=== PATIENT | male | born 1970 | race American Indian/Alaskan Native ===

== ENCOUNTER 2019-07-16 18:45 | Emergency (ER) | payer SELFPAY ==
[2019-07-16 19:38] LABS: Basophils % (Auto) 0.5 % (0.0-1.8); Eosinophils % (Auto) 0.4 % (0.0-4.3); Hemoglobin 14.9 gm/dl (11.8-15.2); Lymphocytes # (Auto) 0.9 K/mm3 (1.2-5.4); Lymphocytes % (Auto) 10.8 % (13.4-35.0); Mean Corpuscular HGB Conc 33 % (32-34); Mean Corpuscular Volume 84 fl (84-94); Monocytes # (Auto) 0.4 K/mm3 (0.0-0.8); Monocytes % (Auto) 4.5 % (0.0-7.3); Platelet Count 189 K/mm3 (140-440); Red Blood Count 5.36 M/mm3 (3.65-5.03); Red Cell Distribution Width 14.1 % (13.2-15.2)
--- NOTE | 2019-07-16 20:09 | Emergency Department Report ---
HPI - General Chief Complaint: Syncope Time Seen by Provider: 07/16/19 19:07 - HPI HPI: 49-year-old female presents to the emergency department by EMS after he had [place]. The patient became very dizzy and had episode of vomiting and almost passed out. He says that he took a knee but did not lose consciousness. Currently the patient is feeling improved and has already gotten up and gone to the vending machines. He had a blood sugar of 95 with EMS. He thinks he was just dehydrated. He has a past medical history of hypertension and polycystic kidney disease. Does not have a primary care physician. He is a tobacco smoker but denies any illicit drug use or current alcohol use. ED Past Medical Hx - Past Medical History Previous Medical History?: Yes Hx Hypertension: Yes Hx Renal Disease: Yes (polycystic kidney disease) Additional medical history: HIGH CHOLESTEROL - Social History Smoking Status: Current Every Day Smoker Substance Use Type: Marijuana - Medications Home Medications: Home Medications Medication Instructions Recorded Confirmed Last Taken Type Lisinopril/Hydrochlorothiazide 1 tab PO QDAY #14 tablet 03/12/15 10/04/15 0 03/31/15 Rx [Zestoretic 10-12.5 mg] Simvastatin 10 mg PO QHS #14 tablet 03/12/15 10/04/15 03/31/15 Rx amLODIPine [Norvasc] 5 mg PO DAILY #90 tab 10/05/15 Unknown Rx ED Review of Systems ROS: Stated complaint: N/V/DIZZINESS Other details as noted in HPI Comment: All other systems reviewed and negative Constitutional: denies: chills, fever Eyes: denies: eye pain, vision change ENT: denies: ear pain, throat pain Respiratory: denies: cough, shortness of breath Cardiovascular: denies: chest pain, palpitations Gastrointestinal: nausea, vomiting Genitourinary: denies: dysuria, discharge Musculoskeletal: denies: back pain, arthralgia Skin: denies: rash, lesions Neurological: other (dizziness). denies: headache, weakness Physical Exam - Physical Exam Vital Signs: Vital Signs 07/16/19 07/16/19 07/16/19 18:56 18:59 19:37 Temperature 98.7 F Pulse Rate 87 84 Respiratory 16 18 16 Rate Blood Pressure 136/87 132/84 [Right] O2 Sat by Pulse 96 97 Oximetry Physical Exam: GENERAL: The patient is well-developed well-nourished. HENT: Normocephalic. Atraumatic. Patient has moist mucous membranes. EYES: Extraocular motions are intact. Pupils equal reactive to light bilaterally. NECK: Supple. Trachea is midline. CHEST/LUNGS: Clear to auscultation. There is no respiratory distress noted. HEART/CARDIOVASCULAR: Regular. There is no tachycardia. There is no murmur. ABDOMEN: Abdomen is soft, nontender. Patient has normal bowel sounds. There is no abdominal distention. SKIN: Skin is warm and dry. NEURO: The patient is awake, alert, and oriented. The patient is cooperative. The patient has no focal neurologic deficits. The patient has normal speech. Cranial nerves II through XII grossly intact. No pronator drift. No dysmetria. MUSCULOSKELETAL: There is no tenderness or deformity. There is no limitation range of motion. There is no evidence of acute injury. ED Course Vital Signs 07/16/19 07/16/19 07/16/19 18:56 18:59 19:37 Temperature 98.7 F Pulse Rate 87 84 Respiratory 16 18 16 Rate Blood Pressure 136/87 132/84 [Right] O2 Sat by Pulse 96 97 Oximetry ED Medical Decision Making - Lab Data Result diagrams: 07/16/19 19:28 07/16/19 19:28 - EKG Data -: EKG Interpreted by [facility] EKG shows normal: sinus rhythm, axis, intervals, QRS complexes (LVH), ST-T waves (early repolarization) Rate: normal - EKG Data When compared to previous EKG there are: no significant change Interpretation: unchanged when compared t (10/04/15) - Medical Decision Making This patient presents to the emergency department by EMS after having a near- syncopal episode. The patient just things he is dehydrated and was out in the sun too long. On examination he does not appear to have any focal, motor or sensory deficits and his cranial nerves are intact. EKG did not show any signs of ST elevation IN. Patient's labs were mostly unremarkable except for signs of acute renal failure. The last time the patient was here was over 4 years ago and he had normal creatinine and GFR at that time. Currently his creatinine is 2.3 and his GFR is 36. Patient does have some signs of hypertension and his EKG showed LVH so this may be a chronic issue for him. However he does not follow with any primary care physician. I recommended to the patient that we proceed with a urinalysis and a renal ultrasound and if this is truly showing signs of acute renal failure and acute kidney injury that he might require admission. However the patient refuses any further workup at this time. I explained to him that he may have acute renal failure and that worsening could lead to abdominal and back pain, uremia, dialysis dependence, volume overload or CHF, significant electrolyte abnormalities. The patient is awake, alert, oriented and appears to have a normal decision making capacity at this time. Despite understanding the risks of leaving, the patient has decided to sign out AMA. He was still given a referral for nephrology and was instructed to return if he changes his mind about further evaluation, or if he has any acute distress. - Differential Diagnosis orthostatic hypotension, dysrhythmia, TIA, hypoglycemia, dehydration Critical Care Time: No Critical care attestation.: If time is entered above; I have spent that time in minutes in the direct care of this critically ill patient, excluding procedure time. ED Disposition Clinical Impression: Near syncope, Acute renal failure Disposition: DC-07 LEFT AGAINST MED ADVICE Is pt being admited?: No Condition: Fair Additional Instructions: You were found today to have some acute kidney failure. Return to the emergency department immediately if you change your mind about further evaluation of your kidney failure, or with any acute distress. I will still give you a referral for a local rn plastic surgery, kidney doctor, Dr. Yanez. Referrals: ZENY YANEZ MD [Staff Physician] - [place] Forms: AMA Form Time of Disposition: 18:30
[2019-07-16 20:41] LABS: Alanine Aminotransferase 10 units/L (7-56); Albumin 3.5 g/dL (3.9-5); BUN/Creatinine Ratio 9; Blood Urea Nitrogen 20 mg/dL (9-20); Calcium 9.5 mg/dL (8.4-10.2); Hemolysis Index 1
[2019-07-16 21:07] VITALS: BP 147/96
== END 2019-07-16 21:08 | disposition left against medical advice (07) ==
LOC: ED 18:45
DX: R55 Syncope and collapse (principal); N17.9 Acute kidney failure, unspecified; I10 Essential (primary) hypertension; E78.00 Pure hypercholesterolemia, unspecified; F17.200 Nicotine dependence, unspecified, uncomplicated; F12.10 Cannabis abuse, uncomplicated
CPT/HCPCS: 36415; 80053; 82550; 84443; 84484; 85025; 93005; 93010